=== PATIENT | male | born 1985 | race Caucasian/White ===

== ENCOUNTER 2016-11-14 09:05 | Emergency (ER) | payer OTHER ==
--- NOTE | 2016-11-14 10:07 | UC ---
Respiratory Complaint HPI - HPI Summary HPI Summary: COUGH , NASAL CONGESTION , CHEST TIGHTNESS AND PRESSURE, NO FEVER, + BODY ACHES, - History of Current Complaint Chief Complaint: UCRespiratory Stated Complaint: RESPIRATORY COMPLAINT Time Seen by Provider: 11/14/16 09:35 Hx Obtained From: Patient Onset/Duration: Gradual Onset, Lasting Days - 5, Still Present Timing: Constant Severity Initially: Moderate Severity Currently: Moderate Character: Cough: Nonproductive Aggravating Factors: Deep Breaths Alleviating Factors: Nothing Associated Signs And Symptoms: Positive: Dyspnea, URI, Nasal Congestion. Negative: Fever, Chills, Wheezing, Hemoptysis, Dizziness, Calf Pain, Calf Swelling, Edema - Allergies/Home Medications Allergies/Adverse Reactions: Allergies Allergy/AdvReac Type Severity Reaction Status Date / Time Penicillins Allergy Intermediate Rash Verified 11/14/16 09:30 Home Medications: Home Medications Metformin HCl [Glucophage Xr] 500 mg PO BID 11/14/16 [History Confirmed 11/14/16 ] PMH/Surg Hx/FS Hx/Imm Hx Endocrine History Of: Reports: Diabetes Cardiovascular History Of: Denies: Cardiac Disorders Respiratory History Of: Denies: Asthma GI/ History Of: Denies: Gastroesophageal Reflux Neurological History Of: Denies: TIA Psychological History Of: Denies: Anxiety Cancer History Of: Denies: Lung Cancer Other History Of: Negative For: HIV - Surgical History Surgical History: None - Family History Known Family History: Positive: None, Diabetes - Social History Alcohol Use: Occasionally Substance Use Type: None Smoking Status (MU): Heavy Every Day Tobacco Smoker Type: Cigarettes Amount Used/How Often: 1 pack daily Length of Time of Smoking/Using Tobacco: 15 years Have You Smoked in the Last Year: Yes Household Exposure Type: Cigarettes - Immunization History Most Recent Influenza Vaccination: not this season Review of Systems Constitutional: Negative Skin: Negative Eyes: Negative ENT: Sore Throat, Ear Ache, Nasal Discharge Respiratory: Cough Cardiovascular: Chest Pain Gastrointestinal: Negative Genitourinary: Negative All Other Systems Reviewed And Are Negative: Yes Physical Exam Triage Information Reviewed: Yes Appearance: Well-Appearing, No Pain Distress, Obese Vital Signs: Initial Vital Signs Temp 98.1 F 11/14/16 09:31 Pulse 80 11/14/16 09:31 Resp 20 11/14/16 09:31 BP 146/75 11/14/16 09:31 Pulse Ox 100 11/14/16 09:31 Vital Signs Reviewed: Yes Eyes: Positive: Conjunctiva Clear ENT: Positive: Normal ENT inspection, Hearing grossly normal, Pharynx normal Neck exam: Normal Neck: Positive: Supple, Nontender, No Lymphadenopathy Respiratory: Positive: Chest non-tender, Lungs clear, Normal breath sounds, No respiratory distress Cardiovascular: Positive: RRR, No Murmur, Pulses Normal UC Diagnostic Evaluation - Laboratory O2 Sat by Pulse Oximetry: 100 Respiratory Course/Dx - Differential Dx/Diagnosis Provider Diagnoses: URI Discharge - Discharge Plan Condition: Stable Disposition: HOME Patient Education Materials: Upper Respiratory Infection (ED) Forms: *Work Release Referrals: Srikanth Huertas MD [Primary Care Provider] - 7 Days
[2016-11-14 10:13] VITALS: BP 146/75
== END 2016-11-14 10:18 | disposition home or self-care (01) ==
LOC: UCCORT 09:05
DX: J06.9 Acute upper respiratory infection, unspecified (principal); E11.9 Type 2 diabetes mellitus without complications; F17.210 Nicotine dependence, cigarettes, uncomplicated; Z88.0 Allergy status to penicillin
CPT/HCPCS: 93005; 99211; G0463

== ENCOUNTER 2017-02-15 08:43 | Emergency (ER) | payer OTHER ==
[2017-02-15] MEDS ORDERED: Ibuprofen TAB* 600 MG PO ONE (10:02)
--- NOTE | 2017-02-15 10:31 | RAD ---
HISTORY: Pain, swelling COMPARISONS: Chair 15 2016 VIEWS: 3, Frontal, lateral, and oblique views of the left ankle FINDINGS: BONE DENSITY: Normal. BONES: There is no displaced fracture. There are calcaneal enthesophytes JOINTS: There is no arthropathy. ALIGNMENT: There is no dislocation. SOFT TISSUES: Unremarkable. OTHER FINDINGS: None. IMPRESSION: NO ACUTE OSSEOUS INJURY. IF SYMPTOMS PERSIST, RECOMMEND REPEAT IMAGING.
[2017-02-15 10:56] VITALS: BP 147/79
--- NOTE | 2017-02-15 11:10 | UC ---
Lower Extremity/Ankle HPI - HPI Summary HPI Summary: TWO DAYS OF LEFT FOOT HEEL AND (LATERAL) ANKLE PAIN. HAS 'FLAT FEET' AND HAS BEEN WORKING ( [employer]) A LOT AND ON FEET A LOT. IS FOLLOWED FOR DIABETES BY PRIMARY CARE PROVIDER, HAS BEEN NON COMPLIANT IN MEDICATION. IS ONE PACK PER DAY SMOKER. - History of Current Complaint Chief Complaint: UCLowerExtremity Stated Complaint: LEFT ANKLE PAIN Time Seen by Provider: 02/15/17 10:12 Hx Obtained From: Patient Onset/Duration: Gradual Onset, Lasting Days, Still Present Severity Initially: Mild Severity Currently: Moderate Aggravating Factor(s): Standing, Ambulation Alleviating Factor(s): Rest, Elevation Able to Bear Weight: Yes - Risk Factors Gout Risk Factors: Negative DVT Risk Factors: Negative Septic Arthritis Risk Factor: Negative - Allergies/Home Medications Allergies/Adverse Reactions: Allergies Allergy/AdvReac Type Severity Reaction Status Date / Time Penicillins Allergy Intermediate Rash Verified 02/15/17 09:10 Home Medications: Home Medications Multiple Vitamins W/ Minerals [Multivitamin Adults] 1 tab PO DAILY 02/15/17 [ History Confirmed 02/15/17] Vit D 1 PO ONCE 02/15/17 [History] PMH/Surg Hx/FS Hx/Imm Hx Previously Healthy: Yes Endocrine History Of: Reports: Diabetes Cardiovascular History Of: Denies: Cardiac Disorders Respiratory History Of: Denies: Asthma GI/ History Of: Denies: Gastroesophageal Reflux Neurological History Of: Denies: TIA Psychological History Of: Denies: Anxiety Cancer History Of: Denies: Lung Cancer Other History Of: Negative For: HIV - Surgical History Surgical History: None - Family History Known Family History: Positive: None, Diabetes - Social History Occupation: Employed Full-time Lives: With Family Alcohol Use: Occasionally Substance Use Type: None Smoking Status (MU): Heavy Every Day Tobacco Smoker Type: Cigarettes Amount Used/How Often: 1 pack daily Length of Time of Smoking/Using Tobacco: 15 years Have You Smoked in the Last Year: Yes Household Exposure Type: Cigarettes Cessation Counseling: Counseled 3+Min - 10 Min - PATIENT INTERESTED IN CESSATION , WILL FOLLOW UP WITH PRIMARY CARE - Immunization History Most Recent Influenza Vaccination: not this season Review of Systems Constitutional: Negative Skin: Negative Eyes: Negative ENT: Negative Respiratory: Negative Cardiovascular: Negative Gastrointestinal: Negative Genitourinary: Negative Motor: Negative Neurovascular: Negative Musculoskeletal: Arthralgia - LEFT LATERAL ANKLE, HEEL Neurological: Negative Psychological: Negative All Other Systems Reviewed And Are Negative: Yes Physical Exam Triage Information Reviewed: Yes Appearance: Well-Appearing, Well-Nourished, Obese Vital Signs: Initial Vital Signs Temp 98.3 F 02/15/17 09:12 Pulse 98 02/15/17 09:12 Resp 20 02/15/17 09:12 BP 156/85 02/15/17 09:12 Pulse Ox 98 02/15/17 09:12 Vital Signs Reviewed: Yes Eye Exam: Normal ENT Exam: Normal ENT: Positive: Normal ENT inspection, Hearing grossly normal, Pharynx normal, TMs normal Dental Exam: Normal Neck exam: Normal Neck: Positive: Supple, Nontender, No Lymphadenopathy Respiratory Exam: Normal Respiratory: Positive: Chest non-tender, Lungs clear, Normal breath sounds, No respiratory distress, No accessory muscle use Cardiovascular Exam: Normal Cardiovascular: Positive: RRR, No Murmur Abdominal Exam: Normal Musculoskeletal Exam: Normal Neurological Exam: Normal Psychological Exam: Normal Psychological: Positive: Normal Response To Family Skin Exam: Normal Lower Extremity Course/Dx - Differential Dx/Diagnosis Differential Diagnosis/HQI/PQRI: Fracture (Closed), Sprain, Strain Provider Diagnoses: LEFT PLANTAR FASCIITIS. ELEVATED BLOOD PRESSURE. OBESITY. TOBACCO ABUSE Discharge - Discharge Plan Condition: Stable Disposition: HOME Patient Education Materials: Plantar Fasciitis Exercises (GEN), How to Stop Smoking (ED), Plantar Fasciitis (ED), Hypertension (ED) Forms: *Work Release Referrals: Srikanth Huertas MD [Primary Care Provider] - Sagar WARD,Nishant Wick [Doctor of Podiatric Medicine] -
== END 2017-02-15 11:45 | disposition home or self-care (01) ==
LOC: UCCORT 08:43
DX: M72.2 Plantar fascial fibromatosis (principal); R03.0 Elevated blood-pressure reading, without diagnosis of hypertension; E66.9 Obesity, unspecified; E11.9 Type 2 diabetes mellitus without complications; Z88.0 Allergy status to penicillin; Z91.14 Patient's other noncompliance with medication regimen; F17.210 Nicotine dependence, cigarettes, uncomplicated; Z71.6 Tobacco abuse counseling
CPT/HCPCS: 99212; A9270-GY; G0463

== ENCOUNTER 2017-02-20 09:21 | Emergency (ER) | payer OTHER ==
[2017-02-20 09:50] VITALS: BP 156/87
--- NOTE | 2017-02-20 09:56 | UC ---
Lower Extremity/Ankle HPI - HPI Summary HPI Summary: bilateral lower ext pain x 5 days pain both ankles, right more than left , no known injury pain with waling and standing , also c/o dizziness , no n/v/d/c , no polyuria , no change in vision - History of Current Complaint Chief Complaint: UCGeneralIllness Stated Complaint: PAIN IN BOTH LEGS,BACK PAIN,DIZZY Time Seen by Provider: 02/20/17 09:23 Hx Obtained From: Patient Onset/Duration: Gradual Onset, Lasting Days - 5, Still Present Severity Initially: Moderate Severity Currently: Moderate Aggravating Factor(s): Standing, Ambulation Alleviating Factor(s): Rest, Elevation Able to Bear Weight: Yes - Allergies/Home Medications Allergies/Adverse Reactions: Allergies Allergy/AdvReac Type Severity Reaction Status Date / Time Penicillins Allergy Intermediate Rash Verified 02/20/17 09:27 Home Medications: Home Medications Lisinopril [Lisinopril 2.5 MG-] 2.5 mg PO DAILY 02/20/17 [History Confirmed ] metFORMIN* [Glucophage 1000 MG TAB *] 1,000 mg PO BID 02/20/17 [History Confirmed 02/20/17] PMH/Surg Hx/FS Hx/Imm Hx Endocrine History Of: Reports: Diabetes - Type 2 Cardiovascular History Of: Reports: Hypertension Denies: Cardiac Disorders Respiratory History Of: Denies: Asthma GI/ History Of: Denies: Gastroesophageal Reflux Neurological History Of: Denies: TIA Psychological History Of: Denies: Anxiety Cancer History Of: Denies: Lung Cancer Other History Of: Negative For: HIV - Surgical History Surgical History: None - Family History Known Family History: Positive: None, Hypertension, Diabetes - Social History Alcohol Use: Rare Substance Use Type: None Smoking Status (MU): Heavy Every Day Tobacco Smoker Type: Cigarettes Amount Used/How Often: 1/2 ppd Length of Time of Smoking/Using Tobacco: 15 years Have You Smoked in the Last Year: Yes Household Exposure Type: Cigarettes - Immunization History Most Recent Influenza Vaccination: 2016 Most Recent Tetanus Shot: utd Most Recent Pneumonia Vaccination: n/a Review of Systems Constitutional: Negative Skin: Negative Eyes: Negative ENT: Negative Respiratory: Negative Cardiovascular: Negative Gastrointestinal: Negative Genitourinary: Negative Musculoskeletal: Arthralgia - bilateral ankles Neurological: Headache, Weakness All Other Systems Reviewed And Are Negative: Yes Physical Exam Triage Information Reviewed: Yes Appearance: Well-Appearing, No Pain Distress, Obese Vital Signs: Initial Vital Signs Temp 97.9 F 02/20/17 09:31 Pulse 82 02/20/17 09:31 Resp 18 02/20/17 09:31 BP 156/87 02/20/17 09:31 Pulse Ox 100 02/20/17 09:31 Vital Signs Reviewed: Yes Eyes: Positive: Conjunctiva Clear ENT: Positive: Normal ENT inspection, Hearing grossly normal, Pharynx normal Neck: Positive: Supple, Nontender, No Lymphadenopathy Respiratory: Positive: Chest non-tender, Lungs clear, Normal breath sounds Cardiovascular: Positive: RRR, No Murmur, Pulses Normal Abdominal Exam: Normal Abdomen Description: Positive: Soft. Negative: Distended, Guarding Bowel Sounds: Positive: Present Musculoskeletal: Positive: Strength Intact, ROM Intact, No Edema, Other: - bilateral ankles : no swelling , no erythema, no significant tenderness , pain with dorsiflexion with resistance Neurological: Positive: Alert UC Physical Exam Vital Signs On Initial Exam: Initial Vitals Temp Pulse Resp BP Pulse Ox 97.9 F 82 18 156/87 100 02/20/17 09:31 02/20/17 09:31 02/20/17 09:31 02/20/17 09:31 02/20/17 09:31 - Neurological Exam Neurological: Normal, Sensory/Motor Intact, Alert, Oriented to Person Place, Time, CN Intact II-III, Reflexes Intact, Normal Gait, Speech Normal Lower Extremity Course/Dx - Differential Dx/Diagnosis Provider Diagnoses: bilateral ankle pain. dizziness Discharge - Discharge Plan Condition: Stable Disposition: HOME Prescriptions: Naproxen [Naproxen EC 500 MG TAB] 500 mg PO BID #20 tab Patient Education Materials: Tendinitis (ED), Dizziness (ED) Forms: *Work Release Referrals: Srikanth Huertas MD [Primary Care Provider] - 7 Days
== END 2017-02-20 10:05 | disposition home or self-care (01) ==
LOC: UCCORT 09:21
DX: M25.572 Pain in left ankle and joints of left foot (principal); M25.571 Pain in right ankle and joints of right foot; R42 Dizziness and giddiness; E11.9 Type 2 diabetes mellitus without complications; Z79.84 Long term (current) use of oral hypoglycemic drugs; I10 Essential (primary) hypertension; E66.9 Obesity, unspecified; Z88.0 Allergy status to penicillin; F17.210 Nicotine dependence, cigarettes, uncomplicated
CPT/HCPCS: 99212; G0463

== ENCOUNTER 2017-06-30 09:29 | Emergency (ER) | payer OTHER ==
--- NOTE | 2017-06-30 10:58 | UC ---
Skin Complaint HPI - HPI Summary HPI Summary: per makeup sales consultant "Itchy rash to hands & in between fingers x1 week. 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 itching "like crazy" some spots on his legs. itching worse at night. no discharge. no fevers. Here with his dtr Jesse. - History of Current Complaint Chief Complaint: UCRash Time Seen by Provider: 06/30/17 09:52 Stated Complaint: RASH - Allergy/Home Medications Allergies/Adverse Reactions: Allergies Allergy/AdvReac Type Severity Reaction Status Date / Time Penicillins Allergy Intermediate Rash Verified 06/30/17 09:37 Home Medications: Home Medications Citalopram TAB* [Celexa TAB*] 10 mg PO DAILY 06/30/17 [History Confirmed ] Review of Systems Constitutional: Negative Skin: Rash Eyes: Negative ENT: Negative Respiratory: Negative Cardiovascular: Negative Gastrointestinal: Negative Genitourinary: Negative Motor: Negative Neurovascular: Negative Musculoskeletal: Negative Neurological: Negative Psychological: Negative All Other Systems Reviewed And Are Negative: Yes PMH/Surg Hx/FS Hx/Imm Hx Previously Healthy: Yes Endocrine History: Diabetes Other History Of: Negative For: HIV - Surgical History Surgical History: None - Family History Known Family History: Positive: None, Hypertension, Diabetes - Social History Alcohol Use: Weekly Substance Use Type: None Smoking Status (MU): Heavy Every Day Tobacco Smoker Type: Cigarettes Amount Used/How Often: 1.5 PPD Length of Time of Smoking/Using Tobacco: 15 years Have You Smoked in the Last Year: Yes Household Exposure Type: Cigarettes - Immunization History Most Recent Influenza Vaccination: not this season Most Recent Tetanus Shot: utd Most Recent Pneumonia Vaccination: n/a Physical Exam Triage Information Reviewed: Yes Appearance: Well-Appearing, No Pain Distress, Well-Nourished Vital Signs: Initial Vital Signs Temp 97.9 F 06/30/17 09:40 Pulse 85 06/30/17 09:40 Resp 16 06/30/17 09:40 BP 142/80 06/30/17 09:40 Pulse Ox 96 06/30/17 09:40 Vital Signs Reviewed: Yes Eye Exam: Normal Respiratory Exam: Normal Respiratory: Positive: Lungs clear Cardiovascular Exam: Normal Cardiovascular: Positive: RRR Skin: Positive: rashes - b/l hands, webs of digits, b/l arms with small punctate red non-blanching tracking like lesions. some on thighs as well. no d/ c or streaks. not crusted. Course/Dx - Course Course Of Treatment: scabies. he has the next 2 days off. adv OOW if rash not resolved. - Differential Diagnoses - Skin Complaint Differential Diagnoses: Scabies, Tinea - Diagnoses Provider Diagnoses: scabies Discharge - Discharge Plan Condition: Stable Disposition: HOME Prescriptions: Permethrin [Elimite] 5 % EX ONCE #1 cre Patient Education Materials: Scabies (ED) Referrals: Srikanth Huertas MD [Primary Care Provider] - 3 Days
[2017-06-30 11:28] VITALS: BP 142/108
== END 2017-06-30 11:26 | disposition home or self-care (01) ==
LOC: UCCORT 09:29
DX: B86 Scabies (principal); E11.9 Type 2 diabetes mellitus without complications; F17.210 Nicotine dependence, cigarettes, uncomplicated; Z88.0 Allergy status to penicillin
CPT/HCPCS: 99212; G0463

== ENCOUNTER 2017-07-16 08:57 | Emergency (ER) | payer OTHER ==
[2017-07-16 09:08] VITALS: BP 130/90
--- NOTE | 2017-07-16 09:21 | UC ---
Skin Complaint HPI - HPI Summary HPI Summary: 31 year old male presents and states he was here 06/30 with a diagnosis of scabies, he used the cream twice but states it didnt help and is still having itchy rash that has spread from hands now to chest, and bilateral thighs. 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 [ End ] - History of Current Complaint Chief Complaint: UCSkin Time Seen by Provider: 07/16/17 09:08 Stated Complaint: RE CK, SKIN COMPLAINT Hx Obtained From: Patient Onset/Duration: Gradual Onset Location: Diffuse Alleviating: Nothing - Allergy/Home Medications Allergies/Adverse Reactions: Allergies Allergy/AdvReac Type Severity Reaction Status Date / Time Penicillins Allergy Intermediate Rash Verified 07/16/17 09:08 Review of Systems Skin: Rash All Other Systems Reviewed And Are Negative: Yes PMH/Surg Hx/FS Hx/Imm Hx Previously Healthy: Yes Other History Of: Negative For: HIV - Surgical History Surgical History: None - Family History Known Family History: Positive: None, Hypertension, Diabetes - Social History Occupation: Employed Full-time Lives: With Family Alcohol Use: Weekly Substance Use Type: None Smoking Status (MU): Heavy Every Day Tobacco Smoker Type: Cigarettes Amount Used/How Often: 1 pack daily Length of Time of Smoking/Using Tobacco: 15 years Have You Smoked in the Last Year: Yes Household Exposure Type: Cigarettes - Immunization History Most Recent Influenza Vaccination: 07/22 Most Recent Tetanus Shot: utd Most Recent Pneumonia Vaccination: n/a Physical Exam Triage Information Reviewed: Yes Appearance: Well-Appearing, No Pain Distress, Well-Nourished Vital Signs: Initial Vital Signs Temp 98.5 F 07/16/17 09:02 Pulse 94 07/16/17 09:02 Resp 16 07/16/17 09:02 BP 130/90 07/16/17 09:02 Pulse Ox 97 07/16/17 09:02 Vital Signs Reviewed: Yes Eye Exam: Normal ENT Exam: Normal Respiratory Exam: Normal Cardiovascular Exam: Normal Musculoskeletal Exam: Normal Neurological Exam: Normal Psychological Exam: Normal Skin: Positive: rashes - small, erythematous, nondescript papule, excoriated rash in the b/l groin, b/l axillae, abdomen, wrists / hand . Course/Dx - Course Course Of Treatment: Failed topical. Start oral. If not improved return to PCP for more intense oral treatment and labs as he is overdue for A1c - Differential Diagnoses - Skin Complaint Differential Diagnoses: Contact Dermatitis, Drug Rash, Scabies - Diagnoses Provider Diagnoses: scabies Discharge - Discharge Plan Condition: Good Disposition: HOME Prescriptions: Ivermectin (NF) [Stromectol (NF)] 200 mg PO WEEKLY #3 tab Triamcinolone 0.1% CREAM(NF) [Kenalog Cream 0.1%(NF)] 1 applic TOPICAL BID PRN # 30 gm PRN Reason: Itching Patient Education Materials: Scabies (ED) Forms: *Work Release Referrals: Srikanth Huertas MD [Primary Care Provider] - 5 Days
== END 2017-07-16 09:39 | disposition home or self-care (01) ==
LOC: UCCORT 08:57
DX: B86 Scabies (principal); Z72.0 Tobacco use
CPT/HCPCS: 99212; G0463

== ENCOUNTER 2018-08-16 09:10 | Emergency (ER) | payer OTHER ==
[2018-08-16 09:45] VITALS: BP 143/89
--- NOTE | 2018-08-16 10:38 | UC ---
Skin Complaint HPI - HPI Summary HPI Summary: Pt c/o sudden onset of tender, moveable, "lumps" in bilateral armpits. Pt denies fever, chills, red streaking, or drainage. - History of Current Complaint Chief Complaint: UCGeneralIllness Time Seen by Provider: 08/16/18 10:29 Stated Complaint: LUMP - ARMPITS BILATERAL Hx Obtained From: Patient Onset/Duration: Sudden Onset, Lasting Days, Still Present Skin Exposure Onset/Duration: Days Ago Timing: Constant Onset Severity: Mild Current Severity: Mild Pain Intensity: 1 Location: Other - bilateral axilla Character: Swelling, Pain, Raised, Painful Aggravating Factor(s): Touch Alleviating Factor(s): Unknown Associated Signs & Symptoms: Positive: Tenderness - Allergy/Home Medications Allergies/Adverse Reactions: Allergies Allergy/AdvReac Type Severity Reaction Status Date / Time Penicillins Allergy Rash Verified 08/16/18 09:42 Review of Systems Constitutional: Negative Skin: Other - tender lumps Eyes: Negative ENT: Negative Respiratory: Negative Cardiovascular: Negative Gastrointestinal: Negative Genitourinary: Negative Motor: Negative Neurovascular: Negative Musculoskeletal: Negative Neurological: Negative Psychological: Negative Is Patient Immunocompromised?: No All Other Systems Reviewed And Are Negative: Yes PMH/Surg Hx/FS Hx/Imm Hx Previously Healthy: Yes Other History Of: Negative For: HIV - Surgical History Surgical History: None - Family History Known Family History: Positive: Hypertension, Diabetes - Social History Occupation: Employed Full-time Lives: With Family Alcohol Use: Weekly Substance Use Type: None Smoking Status (MU): Heavy Every Day Tobacco Smoker Type: Cigarettes Amount Used/How Often: 1 PPD Length of Time of Smoking/Using Tobacco: 15 years Have You Smoked in the Last Year: Yes Household Exposure Type: Cigarettes - Immunization History Most Recent Influenza Vaccination: 07/22 Most Recent Tetanus Shot: utd Most Recent Pneumonia Vaccination: n/a Physical Exam - Summary Physical Exam Summary: Pt works at a [employer] as a cook. Triage Information Reviewed: Yes Appearance: Well-Appearing Vital Signs: Initial Vital Signs Temp 98.9 F 08/16/18 09:39 Pulse 80 08/16/18 09:39 Resp 18 08/16/18 09:39 BP 143/89 08/16/18 09:39 Pulse Ox 98 08/16/18 09:39 Vital Signs Reviewed: Yes Eye Exam: Normal ENT Exam: Normal Dental Exam: Normal Neck exam: Normal Respiratory Exam: Normal Cardiovascular Exam: Normal Musculoskeletal Exam: Normal Neurological Exam: Normal Psychological Exam: Normal Skin Exam: Other - 2 ,moveable, tender,soft, mild erythematous 1 cm "lumps" in bilateral axillae. no discharge. Course/Dx - Differential Diagnoses - Skin Complaint Differential Diagnoses: Abscess, MRSA - Diagnoses Provider Diagnoses: abscess- bialteral axillae Discharge - Sign-Out/Discharge Documenting (check all that apply): Patient Departure All imaging exams completed and their final reports reviewed: No Studies - Discharge Plan Condition: Stable Disposition: HOME Prescriptions: Sulfamethox/Trimethoprim DS* [Bactrim DS 800/160 TAB*] 1 tab PO Q12H #14 tab Patient Education Materials: Abscess (ED), Warm Compress or Soak (ED) Referrals: [facility] [place] PHYSICIAN REFERRAL [Outside] Kevin Hall [Medical Doctor] - If Needed No Primary Care Phys,NOPCP [Primary Care Provider] - - Billing Disposition and Condition Condition: STABLE Disposition: Home - Attestation Statements Provider Attestation: I was available for consult. This patient was seen by the DEB. The patient was not presented to, seen by, or examined by me. -Gavin
== END 2018-08-16 10:44 | disposition home or self-care (01) ==
LOC: UCCORT 09:10
DX: L02.412 Cutaneous abscess of left axilla (principal); L02.411 Cutaneous abscess of right axilla; F17.210 Nicotine dependence, cigarettes, uncomplicated; Z88.0 Allergy status to penicillin
CPT/HCPCS: 99212; G0463

== ENCOUNTER 2018-09-03 10:05 | Emergency (ER) | payer OTHER ==
[2018-09-03 10:26] VITALS: BP 149/83
[2018-09-03] MEDS ORDERED: Ketorolac INJ* 60 MG/2 ML VIAL IM ONE (10:51)
--- NOTE | 2018-09-03 10:57 | UC ---
General HPI - HPI Summary HPI Summary: 1. Patient is complaining of 2-3 day history of an ache in the center of his low back. He denies any history of injury. Pain increases with bending at the waist. He denies any associated fever or chills, abdominal pain, saddle anesthesia, numbness and weakness to the arms and legs as well as bowel or bladder dysfunction. He has attempted no self treatment citing he does not like to take medication if it isn't needed. 2. Patient has a second complaint of some tender lumps in his armpits. States he was seen her on the but never realized he was prescribed antibiotic thus he did not get it or take it as directed. He also admits that she did not follow-up with the surgical referral as directed. He denies any history of MRSA as well as abscesses in his armpits. He states that he did have a couple of additional spots on the left that up since resolved. - History of Current Complaint Chief Complaint: UCBackPain Stated Complaint: LOW BACK PAIN Time Seen by Provider: 09/03/18 10:24 Hx Obtained From: Patient Pain Intensity: 4 Associated Signs & Symptoms: Positive: Back Pain. Negative: Abdominal Pain, Dysuria, Fever - Allergy/Home Medications Allergies/Adverse Reactions: Allergies Allergy/AdvReac Type Severity Reaction Status Date / Time amoxicillin Allergy avoids due Verified 09/03/18 10:19 to PCN allergy metformin Allergy "I didn't Verified 09/03/18 10:[address] it made me feel." Penicillins Allergy Rash Verified 09/03/18 10:18 PMH/Surg Hx/FS Hx/Imm Hx Endocrine History: Diabetes - Did not follow-up with her scheduled repeat A1cpt not txing. Other History Of: Negative For: HIV - Surgical History Surgical History: None - Family History Known Family History: Positive: None, Hypertension, Diabetes - Social History Occupation: Employed Full-time Lives: With Family Alcohol Use: Weekly Alcohol Amount: 10 Substance Use Type: None Smoking Status (MU): Heavy Every Day Tobacco Smoker Type: Cigarettes Amount Used/How Often: 1 PPD Length of Time of Smoking/Using Tobacco: 15 years Have You Smoked in the Last Year: Yes Household Exposure Type: Cigarettes - Immunization History Most Recent Influenza Vaccination: 07/22 Most Recent Tetanus Shot: utd Most Recent Pneumonia Vaccination: n/a Vaccination Up to Date: Yes Review of Systems Constitutional: Negative Skin: Other - lumps in arm pits Eyes: Negative ENT: Negative Respiratory: Negative Cardiovascular: Negative Gastrointestinal: Negative Genitourinary: Negative Motor: Negative Neurovascular: Negative Musculoskeletal: Other: - pain central low back Neurological: Negative Psychological: Negative Is Patient Immunocompromised?: No All Other Systems Reviewed And Are Negative: Yes Physical Exam Triage Information Reviewed: Yes Appearance: Well-Appearing Vital Signs: Initial Vital Signs Temp 97.8 F 09/03/18 10:22 Pulse 92 09/03/18 10:22 Resp 18 09/03/18 10:22 BP 149/83 09/03/18 10:22 Pulse Ox 99 09/03/18 10:22 Vital Signs Reviewed: Yes Eyes: Positive: Conjunctiva Clear ENT: Positive: Pharynx normal, TMs normal. Negative: Nasal congestion, Nasal drainage Neck: Positive: Supple, Nontender, No Lymphadenopathy Respiratory: Positive: Lungs clear, Normal breath sounds Cardiovascular: Positive: RRR, No Murmur Abdomen Description: Positive: Nontender, No Organomegaly, Soft, Other: - no inguinal adenopathy Bowel Sounds: Positive: Present Musculoskeletal: Positive: Other: - Cervical, thoracic and lumbar spine are without gross deformity swelling or discoloration. Patient notes tenderness to palpation over the central lumbar spine. He notes pain on flexion but range of motion is intact. The rest of the spine and back are nontender to palpation. His no saddle anesthesia. Sensorivascular motor function is intact 4. Neurological: Positive: Alert Psychological: Positive: Age Appropriate Behavior Skin Exam: Normal Skin: Positive: rashes - There is some mild erythema to the crease of each axilla. Each side has a single 3/4cm tender soft tissue not fixed area of swelling that is not fluctuant. No epitrochlear adenopathy. 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 Course/Dx - Course Course Of Treatment: non toxic, no acute abdomen, no concern for cauda equina or infection. LS xray=OA, DDD. Axilla exam most c/w infection but will need to exclude non resolving adenopathy. pt agrees to tx with doxycycline and close f/ u [facility] for recheck. hx untreated DB. No concern for DKA. u/a= protein, ketones TR and glucose tr. plus dehydration. pt advised again of need for f/u sergio to start tx of DM and assess renal function given u/a result here. BP may be pain related but will need that rechecked as well. - Differential Dx - Multi-Symptom Provider Diagnoses: ACUTE LOW BACK PAIN. AXILLARY SWELLING, NON INFECTION ADENOPATHY VS SKIN INFECTION WITH ADENOPATHY. ELEVATED BP. PROTEINUREIA. Discharge - Sign-Out/Discharge Documenting (check all that apply): Patient Departure All imaging exams completed and their final reports reviewed: Yes - Discharge Plan Condition: Stable Disposition: HOME Prescriptions: DOXYcycline CAP(*) [DOXYcycline 100MG CAP(*)] 100 mg PO BID 7 Days #14 cap Patient Education Materials: Acute Low Back Pain (ED), Hidradenitis Suppurativa (ED) Referrals: HARRY Nye [Medical Doctor] - As Soon As Possible Additional Instructions: DIAGNOSIS: ACUTE LOW BACK PAIN, AXILLARY SWELLING, ELEVATED BP 149/83, PROTEIN IN URINE. THIS VISIT IS NO SUBSTITUTE FOR FOLLOW UP WITH HARRY CHENG. - Billing Disposition and Condition Condition: STABLE Disposition: Home
--- NOTE | 2018-09-03 11:26 | RAD ---
HISTORY: low back pain COMPARISONS: June 03, 2014 VIEWS: 3 , Frontal, lateral, and coned-down lateral sacral views of the lumbar spine FINDINGS: ALIGNMENT: The alignment is normal. VERTEBRAL BODIES: The vertebral body heights are normal. The interpedicular distances are normal. JOINTS: There is facet osteoarthritis at L4-L5 and L5-S1. INTERVERTEBRAL DISCS: There is mild diffuse loss of intervertebral disc height. SOFT TISSUE: Unremarkable. OTHER: The pelvis is unremarkable. The lung bases are clear. 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
== END 2018-09-03 11:49 | disposition home or self-care (01) ==
LOC: UCCORT 10:05
DX: M54.5 Low back pain (principal); M79.89 Other specified soft tissue disorders; E11.9 Type 2 diabetes mellitus without complications; R80.9 Proteinuria, unspecified; F17.210 Nicotine dependence, cigarettes, uncomplicated; R03.0 Elevated blood-pressure reading, without diagnosis of hypertension; Z88.0 Allergy status to penicillin; Z88.8 Allergy status to other drugs, medicaments and biological substances
CPT/HCPCS: 72100; 81003; 96372; 99212; G0463; J1885

== ENCOUNTER 2019-08-13 07:48 | Emergency (ER) | payer OTHER ==
[2019-08-13 08:12] VITALS: BP 144/85
--- NOTE | 2019-08-13 08:27 | UC ---
UC General HPI - HPI Summary HPI Summary: 33-year-old male comes in with a chief complaint of gingival swelling and pain and upper lip swelling and pain. 2 days ago in the morning he woke up with some pain and swelling in the frenulum and upper lip. As the day went on overall the symptoms improved. 2 days ago in the evening he did feel a little bit sick. Yesterday morning when he woke up he had swelling again which was worse than before and once again it did improve during the course of the day. This morning when he woke up the swelling was back and the pain is back and the swelling and the pain or worse than before. Pain does get worse with palpation. Denies any dental pain but he does have 2 false teeth in the front upper mouth which is adjacent to the swelling of the gums at that location. Swelling also feels like it constricts the nares some. No runny nose no difficulty swallowing or breathing. Patient is on lisinopril. He takes that in the mornings. When he wakes up in the morning the swelling is at its worse and he takes lisinopril about an hour later. - History of Current Complaint Chief Complaint: UCGeneralIllness Stated Complaint: FATLIP/JAWPAIN Time Seen by Provider: 08/13/19 08:10 Pain Intensity: 4 - Allergy/Home Medications Allergies/Adverse Reactions: Allergies Allergy/AdvReac Type Severity Reaction Status Date / Time amoxicillin Allergy avoids due Verified 08/13/19 08:06 to PCN allergy Penicillins Allergy Rash Verified 08/13/19 08:06 Home Medications: Home Medications Atorvastatin* [Lipitor*] 40 mg PO DAILY 08/13/19 [History Confirmed 08/13/19] Dulaglutide [Trulicity] 1 unit IM WEEKLY 08/13/19 [History Confirmed 08/13/19] Lisinopril/Hydrochlorothiazide [Lisinopril-Hctz 10-12.5 mg Tab] 1 each PO DAILY 08/13/19 [History Confirmed 08/13/19] Metformin ER (NF) 500 mg PO BID 08/13/19 [History Confirmed 08/13/19] glipiZIDE [Glipizide ER] 5 mg PO BID 08/13/19 [History Confirmed 08/13/19] PMH/Surg Hx/FS Hx/Imm Hx Previously Healthy: Yes Endocrine History: Diabetes, Dyslipidemia Cardiovascular History: Hypertension Other History Of: Negative For: HIV - Surgical History Surgical History: None - Family History Known Family History: Positive: None, Hypertension, Diabetes - Social History Alcohol Use: Weekly Alcohol Amount: 10 Substance Use Type: None Smoking Status (MU): Heavy Every Day Tobacco Smoker Type: Cigarettes Amount Used/How Often: 1 PPD Length of Time of Smoking/Using Tobacco: 15 years Have You Smoked in the Last Year: Yes Household Exposure Type: Cigarettes - Immunization History Most Recent Influenza Vaccination: 07/22 Most Recent Tetanus Shot: utd Most Recent Pneumonia Vaccination: n/a Vaccination Up to Date: Yes Review of Systems All Other Systems Reviewed And Are Negative: Yes Constitutional: Positive: Other - SEE HPI Skin: Positive: Other - SEE HPI Eyes: Positive: Negative ENT: Positive: Dental Pain, Other - SEE HPI Respiratory: Positive: Negative Cardiovascular: Positive: Negative Gastrointestinal: Positive: Negative Motor: Positive: Negative Neurovascular: Positive: Negative Musculoskeletal: Positive: Negative Neurological: Positive: Negative Psychological: Positive: Negative Is Patient Immunocompromised?: No Physical Exam Triage Information Reviewed: Yes Appearance: Well-Appearing, No Pain Distress, Well-Nourished Vital Signs: Initial Vital Signs Temp 97.5 F 08/13/19 08:01 Pulse 115 08/13/19 08:01 Resp 14 08/13/19 08:01 BP 144/85 08/13/19 08:01 Pulse Ox 99 08/13/19 08:01 Vital Signs Reviewed: Yes Eye Exam: Normal Eyes: Positive: Conjunctiva Clear ENT: Positive: Uvula midline, Other - The gums just above the front teeth is swollen as is the frenulum. The upper lip is also swollen. Oral pharynx is open voice is normal. Nares are open. No rhinorrhea.. Negative: Nasal congestion, Muffled voice, Hoarse voice Neck: Positive: Supple Respiratory: Positive: Lungs clear, Normal breath sounds, No respiratory distress Cardiovascular: Positive: Tachycardia Musculoskeletal: Positive: Strength Intact, ROM Intact Neurological: Positive: Alert, Muscle Tone Normal Psychological: Positive: Age Appropriate Behavior Skin Exam: Normal Course/Dx - Course Course Of Treatment: With the pain in the swelling of the upper front gum is it appears the cause of the pain and swelling is infection therefore we will treat with clindamycin as the patient is allergic to penicillins. The swelling is worse when he wakes up he takes lisinopril an hour later. This makes lisinopril less likely cause of the swelling. I did discuss the possibility of lisinopril causing swelling and at this time the patient's not going to take his lisinopril until the swelling is improved. I let him know that if the swelling to get worse any difficulty with breathing or swallowing he needs to go the emergency room for further evaluation and care. Because of the higher probability of bacterial infection and will not treat with a steroid at this time. Patient will follow-up with his dentist for dental infection as appropriate. Patient also follow-up his primary care doctor to determine whether or not he should restart the lisinopril. - Diagnoses Provider Diagnosis: Dental infection, Swelling of face Discharge ED - Sign-Out/Discharge Documenting (check all that apply): Patient Departure All imaging exams completed and their final reports reviewed: No Studies - Discharge Plan Condition: Stable Disposition: HOME Prescriptions: Clindamycin Cap(NF) [Clindamycin Cap 300 mg Cap(NF)] 300 mg PO Q6H #40 cap Patient Education Materials: Dental Abscess (ED), Angioedema (ED) Referrals: [facility] REFERRAL [Outside] Additional Instructions: FOLLOW UP WITH YOUR DOCTOR TO DETERMINE IF YOU SHOULD CONTINUE THE LISINOPRIL. Follow-up with your dentist. Most probable cause of your facial swelling is a dental infection. We are treating that with the antibiotic clindamycin. Expect the swelling to improve over the next 1-2 days. If the swelling gets worse he have any difficulty with breathing or swallowing you need to get reevaluated right away in the emergency department. Lisinopril can also cause facial swelling as an adverse reaction. Stop taking lisinopril at this time. When the swelling is gone you can restart the lisinopril. If the swelling returns you need to discontinue the lisinopril permanently. GET REEVALUATED IF NOT IMPROVING. GO TO THE EMERGENCY DEPARTMENT IF YOUR CONDITION WORSENS; DIFFICULTY WITH BREATHING, THE SWELLING INCREASED, DIFFICULTY SWALLOWING, FEVER, YOU FEEL ILL OR ANY QUESTIONS OR CONCERNS - Billing Disposition and Condition Condition: STABLE Disposition: Home
== END 2019-08-13 08:30 | disposition home or self-care (01) ==
LOC: UCCORT 07:48
DX: K04.7 Periapical abscess without sinus (principal); R22.0 Localized swelling, mass and lump, head; Z88.0 Allergy status to penicillin; E11.9 Type 2 diabetes mellitus without complications; Z79.84 Long term (current) use of oral hypoglycemic drugs; I10 Essential (primary) hypertension; E78.5 Hyperlipidemia, unspecified; F17.210 Nicotine dependence, cigarettes, uncomplicated
CPT/HCPCS: 99212; G0463

== ENCOUNTER 2023-06-20 05:29 | Inpatient (IN) ==
[~2023-06-20 05:29] MED LIST: Buffered Lidocaine 1% SYRIN 1 ml INTRADERM ONE; HYDROmorphone 1 MG/1 ML SYRINGE IV PRN; Lactated Ringers 1000 ml BAG 1,000 ML IV SCH; Naloxone 0.4 mg VIAL 0.4 mg/ml 1 ml VIAL IV PRN; Ondansetron 4 mg VIAL 2 MG/ML 2 ml VIAL IV PRN; Scopolamine 1 mg/72hr PATCH TRANSDERM ONE; fentaNYL 100 mcg/2 ml 50 MCG/ML VIAL IV PRN
[2023-06-20] MEDS ORDERED: Heparin 5000 UNITS/ML 1 mL VIAL ONE (06:08)
[2023-06-20] MEDS ORDERED: Clindamycin 900 MG/50 **NS BAG 900 MG/50 ML BAG ONE (06:08)
[2023-06-20] MEDS ORDERED: Scopolamine 1 mg/72hr PATCH ONE (06:08)
[2023-06-20 06:27] LABS: Rapid COVID-19 Molecular Undetected (Undetected)
[2023-06-20] MEDS ORDERED: Rocuronium 50 mg VIAL 10 mg/ml 5 ml VIAL (50 mg) ONE ×2 (06:40→08:44)
[2023-06-20] MEDS ORDERED: Propofol 10 MG/ML 20 ML BTL ONE (06:40)
[2023-06-20] MEDS ORDERED: Midazolam 2 mg/2 ml VIAL 1 mg/ml 2 ml VIAL (2 mg) ONE (06:40)
[2023-06-20] MEDS ORDERED: fentaNYL 100 mcg/2 ml 50 MCG/ML VIAL ONE ×2 (06:40→08:03)
[2023-06-20] MEDS ORDERED: Lidocaine 2% PF 5 ML VIAL ONE (06:40)
[2023-06-20] MEDS ORDERED: Methylene Blue 0.5 % 50 MG/10 ML AMP IV ONE (06:55)
[2023-06-20] MEDS ORDERED: Bupivacaine 0.25% EPI 200,000 30 ML SDV ONE (06:55)
[2023-06-20] MEDS ORDERED: HYDROmorphone 0.5 MG/0.5 ML SYRINGE ONE ×3 (08:31→09:02)
[2023-06-20] MEDS ORDERED: HYDROmorphone 0.5 MG/0.5 ML SYRINGE IV SLOW PU PRN (10:09)
[2023-06-20] MEDS ORDERED: Ondansetron 4 mg VIAL 2 MG/ML 2 ml VIAL IV PRN (10:09)
[2023-06-20] MEDS ORDERED: HYDROcodone/ACET. 7.5/325 LIQ 15 ML UDC PO PRN (10:09)
[2023-06-20] MEDS ORDERED: Labetalol IV 5 MG/ML 20 ml VIAL IV PUSH ONE (11:15)
[2023-06-20] MEDS ORDERED: Labetalol IV 5 MG/ML 20 ml VIAL ONE (11:18)
[2023-06-20] MEDS: Lactated Ringers 1000 ml BAG 1,000 ML IV SCH ×2 (12:25→18:43)
[2023-06-20] MEDS: Heparin 5000 UNITS/ML 1 mL VIAL SUBCUT SCH (22:21)
[2023-06-21] MEDS: Lactated Ringers 1000 ml BAG 1,000 ML IV SCH ×2 (01:30→08:16)
[2023-06-21] MEDS: Heparin 5000 UNITS/ML 1 mL VIAL SUBCUT SCH (05:17)
[2023-06-21] MEDS ORDERED: D5W 1/2 NS KCl 20 meq 1000 ml 1,000 ML IV SCH (11:00)
[2023-06-21 11:11] VITALS: BP 145/78
== END 2023-06-21 13:45 | disposition home or self-care (01) | DRG 403 ==
LOC: AA 05:29 → SSU 12:43
PROVIDERS: ADMIT Surgery; ATTEND Surgery